=== PATIENT | female | born 1960 | race Caucasian/White ===

== ENCOUNTER 2021-10-07 17:49 | Emergency (ER) | payer MEDICAID, SELFPAY ==
[2021-10-07 17:53] VITALS: BP 149/90; PULSE 120; RESP 18; TEMP 36.7; O2SAT 98
--- NOTE | 2021-10-07 18:00 | DI.RAD_ITS ---
Exam(s) XR ELBOW LT COMPLETE EXAM: XR ELBOW LT COMPLETE CLINICAL HISTORY: fall onto outstretched arm, r/o fx. TECHNIQUE: 2D digital imaging was performed. Three views. COMPARISON: No exams were available for comparison FINDINGS: BONES: There is a minimally displaced fracture through the radial head. No additional fractures are identified. No bony destructive lesion is seen. There is spurring at the coronoid process.. JOINTS: The elbow is normally aligned. A joint effusion is seen. SOFT TISSUE: Normal. IMPRESSION: Minimally displaced radial head fracture. DATA REPOSITORY: RADIATION DOSE DELIVERED:
--- NOTE | 2021-10-07 18:00 | DI.RAD_ITS ---
Exam(s) XR SHOULDER LT COMPLETE 2+V EXAM: XR SHOULDER LT COMPLETE 2+V CLINICAL HISTORY: fall onto outstretched arm, r/o fx. TECHNIQUE: 2D digital imaging was performed. Four views. COMPARISON: No exams were available for comparison FINDINGS: BONES: Prior surgical resection of the distal clavicle. No acute fracture is present. No bony destru ctive lesion is seen. JOINTS: No dislocation present. Mild degenerative changes of glenohumeral joint. SOFT TISSUE: Normal. IMPRESSION: No acute abnormality. DATA REPOSITORY: RADIATION DOSE DELIVERED:
--- NOTE | 2021-10-07 18:00 | DI.RAD_ITS ---
Exam(s) XR WRIST LT COMPLETE EXAM: XR WRIST LT COMPLETE CLINICAL HISTORY: fall onto outstretched arm, r/o fx. TECHNIQUE: 2D digital imaging was performed. Three views. COMPARISON: No exams were available for comparison FINDINGS: BONES: No acute fracture is present. No bony destructive lesion is seen. JOINTS: The carpal bones are normally aligned. Mild degenerative changes 1st carpal metacarpal joint. SOFT TISSUE: Normal. IMPRESSION: Unremarkable radiographs of the left wrist. DATA REPOSITORY: RADIATION DOSE DELIVERED:
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
[2021-10-07] MEDS: Acetaminophen 500 MG TAB 1000 MG PO (18:13)
--- NOTE | 2021-10-07 18:48 | DI.VRAD_ITS ---
PROCEDURE INFORMATION: Exam: XR Left Wrist Exam date and time: 10/07/2021 6:23 PM Age: 61 years old Clinical indication: Pain; Wrist; Left; Patient HX: Fall on outstretched arm TECHNIQUE: Imaging protocol: XR Left wrist. Views: 3 or more views. COMPARISON: No relevant prior studies available. FINDINGS: Bones/joints: Normal. Soft tissues: Normal. IMPRESSION: No evidence for fracture. Dictated and Authenticated by: Amara Walker MD. Ordering:CHRISTIANO Walters MD
--- NOTE | 2021-10-07 18:50 | DI.VRAD_ITS ---
PROCEDURE INFORMATION: Exam: XR Left Shoulder Exam date and time: 10/07/2021 6:20 PM Age: 61 years old Clinical indication: Pain; Shoulder; Left; Patient HX: Fall on outstretched arm TECHNIQUE: Imaging protocol: XR Left shoulder. Views: 2 or more views. COMPARISON: No relevant prior studies available. FINDINGS: Tubes, catheters and devices: Overlying jewelry artifact present. Bones/joints: There is resection of the distal clavicle consistent with previous surgery. No acute fracture seen. Soft tissues: Normal. IMPRESSION: No evidence for acute posttraumatic abnormality. Dictated and Authenticated by: Amara Walker MD. Ordering:CHRISTIANO Walters MD
--- NOTE | 2021-10-07 18:51 | DI.VRAD_ITS ---
PROCEDURE INFORMATION: Exam: XR Left Elbow Exam date and time: 10/07/2021 6:26 PM Age: 61 years old Clinical indication: Injury or trauma; Sprain or strain; Elbow; Left; Injury date: 10/07/21; Injury details: Fall onto outstretched arm TECHNIQUE: Imaging protocol: XR Left elbow. Views: 3 or more views. COMPARISON: CR XR WRIST LT COMPLETE 10/07/2021 6:23 PM FINDINGS: Bones/joints: There is a nondisplaced fracture through the radial head. Joint effusion present. Soft tissues: Normal. IMPRESSION: Nondisplaced radial head fracture. Dictated and Authenticated by: Amara Walker MD. Ordering:CHRISTIANO Walters MD
[2021-10-07 19:16] VITALS: BP 134/76; PULSE 92; RESP 18; O2SAT 99
== END 2021-10-07 19:25 | disposition home or self-care (01) ==
PROVIDERS: Emergency Provider Physician Assistant; PCP Family Medicine
DX: S52.125A Nondisplaced fracture of head of left radius, initial encounter for closed fracture (principal); S63.592A Other specified sprain of left wrist, initial encounter; S46.812A Strain of other muscles, fascia and tendons at shoulder and upper arm level, left arm, initial encounter; V18.4XXA Pedal cycle driver injured in noncollision transport accident in traffic accident, initial encounter
CPT/HCPCS: 99284; 73030; 73080; 73110; 99283

== ENCOUNTER 2021-10-22 11:35 | Outpatient (CLI) | payer MEDICAID, SELFPAY ==
--- NOTE | 2021-10-22 11:15 | DI.RAD_ITS ---
Exam(s) XR ELBOW LT COMPLETE EXAM: XR ELBOW LT COMPLETE CLINICAL HISTORY: F/U L RADIAL HEAD FRACTURE. TECHNIQUE: 2D digital imaging was performed of the left elbow. Three images were obtained. AP, lat eral and oblique views were obtained. COMPARISON: CR,XR XR ELBOW LT COMPLETE from 10/07/2021 FINDINGS: BONES: There has been no change in alignment of the radial head fracture. No bony destructive lesion is seen. JOINTS: The elbow is normally aligned. There is a joint effusion present. SOFT TISSUE: Normal. IMPRESSION: Stable radial head fracture. DATA REPOSITORY: RADIATION DOSE DELIVERED:
--- NOTE | 2021-10-22 11:30 | DI.RAD_ITS ---
Exam(s) XR WRIST LT COMP NAVICULAR EXAM: XR WRIST LT COMP NAVICULAR CLINICAL HISTORY: left wrist pain. TECHNIQUE: 2D digital imaging was performed of the left wrist. Four images were obtained. Scaphoid , PA, oblique and lateral views were obtained. COMPARISON: CR,XR XR WRIST LT COMPLETE from 10/07/2021 FINDINGS: BONES: No acute fracture is present. No bony destructive lesion is seen. JOINTS: The carpal bones are normally aligned. Mild degenerative changes of the 1st CMC joint. SOFT TISSUE: Normal. IMPRESSION: No acute or healing fracture or dislocation. DATA REPOSITORY: RADIATION DOSE DELIVERED:
== END 2021-10-22 11:36 | disposition home or self-care (01) ==
LOC: DIORS 11:36
PROVIDERS: PCP Family Medicine; Referring Provider Family Medicine; Visit Provider Student in an Organized Health Care Education/Training Program
DX: S52.122D Displaced fracture of head of left radius, subsequent encounter for closed fracture with routine healing (principal); M25.532 Pain in left wrist; X58.XXXD Exposure to other specified factors, subsequent encounter
CPT/HCPCS: 73080; 73110

== ENCOUNTER 2021-11-19 08:09 | Outpatient (CLI) | payer MEDICAID, SELFPAY ==
--- NOTE | 2021-11-19 08:00 | DI.RAD_ITS ---
Exam(s) XR ELBOW LT COMPLETE EXAM: XR ELBOW LT COMPLETE CLINICAL HISTORY: L elbow fx. TECHNIQUE: 2D digital imaging was performed. Three views. COMPARISON: CR XR ELBOW LT COMPLETE from 10/22/2021 FINDINGS: Has been no change in the alignment of the radial head fracture. Spurring is again noted at the olec ranon. IMPRESSION: Stable radial head fracture DATA REPOSITORY: RADIATION DOSE DELIVERED:
== END 2021-11-19 08:10 | disposition home or self-care (01) ==
LOC: DIORS 08:09
PROVIDERS: PCP Family Medicine; Referring Provider Family Medicine; Visit Provider Physician Assistant
DX: S52.122A Displaced fracture of head of left radius, initial encounter for closed fracture (principal)
CPT/HCPCS: 73080

== ENCOUNTER 2021-12-23 12:15 | Outpatient (CLI) | payer MEDICAID, SELFPAY ==
--- NOTE | 2021-12-23 10:32 | DI.RAD_ITS ---
Exam(s) XR ELBOW LT COMPLETE EXAM: XR ELBOW LT COMPLETE CLINICAL HISTORY: f/u L RADIAL HEAD FRACTURE. TECHNIQUE: 2D digital imaging was performed. COMPARISON: CR XR ELBOW LT COMPLETE from 11/19/2021 FINDINGS: 3 views Again noted is the previously described radial head fracture, again noted to be on the lateral half o f radial head. Fracture line is still evident. Small step again evident. No further displacement. No new additional fractures evident. IMPRESSION: DATA REPOSITORY: RADIATION DOSE DELIVERED:
== END 2021-12-23 12:16 | disposition home or self-care (01) ==
LOC: DIORS 12:15
PROVIDERS: PCP Family Medicine; Referring Provider Family Medicine; Visit Provider Physician Assistant
DX: S52.122D Displaced fracture of head of left radius, subsequent encounter for closed fracture with routine healing (principal); X58.XXXD Exposure to other specified factors, subsequent encounter
CPT/HCPCS: 73080

== ENCOUNTER → 2021-12-27 01:30 | Outpatient (CLI) | payer MEDICAID, SELFPAY ==
--- NOTE | 2021-12-27 07:45 | DI.CT_ITS ---
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 CONTRAST MATERIAL: Intravenous: None COMPARISON: No exams were available for comparison FINDINGS: OSSEOUS: There is an oblique fracture through the lateral aspect of the radial head is imaging nonunion. Minim al displacement. No prominent step at the articular surface. Radial neck and tuberosity appear unrema rkable. There are also 2 calcific densities between the proximal radius and ulna, the larger of the 2 measuri ng 6 x 1.5 millimeters. There is a subtle irregularity at the medial tip of the coronoid process which may be nondisplaced fr acture at this level.. Medial epicondyle unremarkable. Lateral epicondyle reveals a 1 millimeter calcific density adjacent t o it related to the common extensor tendon. There is a 1 millimeter calcific density seen posteriorly of the posterior tip of the olecranon. SOFT TISSUES: No abnormal muscular findings. No abnormal fluid collections. No radiopaque foreign bod y. IMPRESSION: Nonunion fracture of the radial head as described above. Other small calcific intra-articular densities as described above. No prominent elbow joint effusion. RADIATION DOSE DELIVERED: 281.89mGy.cm Total DLP DATA REPOSITORY: All CT scans at this facility are submitted to the National Radiology Data Registry (NRDR) Dose Index Registry (DIR) with the [employer] ([employer]). RADIATION OPTIMIZATION: All CT scans at this facility use at least one of these dose optimization te chniques: automated exposure control; mA and/or kV adjustment per patient size (includes targeted exa ms where dose is matched to clinical indication); or iterative reconstruction.
== END ==
PROVIDERS: PCP Family Medicine; Visit Provider Student in an Organized Health Care Education/Training Program
DX: S52.122 Displaced fracture of head of left radius (principal); X58.XXXD Exposure to other specified factors, subsequent encounter
CPT/HCPCS: 73200

== ENCOUNTER 2025-02-26 00:10 | Outpatient (CLI) | payer MEDICAID, SELFPAY ==
--- NOTE | 2025-02-26 06:30 | DI.RAD_ITS ---
Exam(s) RF JOINT INJ. FLUORO GUID RAD EXAM: RF JOINT INJ. FLUORO GUID RAD CLINICAL HISTORY: PAIN, FLUORO INJ R SHOULDER,arthritis rt glenohumeral joint,m19.011. The Patient has had persistent right shoulder pain. Noninvasive measures have been tried. To serve as both diagnostic and therapeutic, an injection under fluoroscopy was recommended. The risks of the procedure were discussed with their Orthopedic provider and the patient elected to proceed. TECHNIQUE: 2D and realtime digital imaging was performed. CONTRAST MATERIAL: Water soluble contrast was utilized. COMPARISON: No exams were available for comparison FINDINGS: The Patient was greeted in the fluoroscopy room. The correct side was identified and the consent was reviewed with the patient and was signed. The patient was properly positioned on the fluoroscopy table. The right shoulderwas then prepped and draped. The right shoulder injection starting point was identified by the bony landmarks and fluoroscopy. The skin and soft tissue in the tract of the injection was anesthetized with 0.25% Bupivacaine. A spinal needle was then inserted into the right shoulder joint at the level of the glenohumeral joint under fluoroscopic guidance. A small amount of Omnipaque solution was injected to confirm intraarticular placement. Once confirmed, the right shoulder was injected with 5cc of a solution containing 0.25% Bupivacaine and 40 mg of Depo-Medrol. A bandaid was placed on the injection site. The patient tolerated the procedure well and left the department in good condition. IMPRESSION: Successful right shoulder injection. RADIATION DOSE DELIVERED: Ka,r=1.63 mGy
[2025-02-26] MEDS: Normal Saline - Diluent 50 ML VIAL IJ (10:24)
[2025-02-26] MEDS: Bupivacaine 0.25% Pres-Free 10 ML VIAL IJ (10:25)
[2025-02-26] MEDS: Omnipaque 300 MG/ML 10 ML BTL IJ (10:26)
[2025-02-26] MEDS: methylPREDNISolone ACETATE 40 MG/ML VIAL IM (10:26)
== END 2025-02-26 00:30 ==
LOC: DI 00:10
PROVIDERS: PCP Family Medicine; Visit Provider Student in an Organized Health Care Education/Training Program
DX: M19.011 Primary osteoarthritis, right shoulder (principal)
CPT/HCPCS: 20610; 77002; J0665; J1010